=== PATIENT | female | born 1965 | race African-American/Black ===

== ENCOUNTER 2019-10-14 11:29 | Emergency (ER) | payer OTHER ==
[~2019-10-14] VITALS: Ht 149.9 cm; Wt 74.5 kg
[~2019-10-14 11:29] MED LIST: GABA-533 PO; GLIP10 PO; METF-445 PO; OMEP20 PO
[2019-10-14] MEDS ORDERED: INSULIN REGULAR, HUMAN 100 UNITS/ML SQ ONE (12:15)
[2019-10-14] MEDS ORDERED: KETOROLAC TROMETHAMINE 60 MG/2 ML VIAL IM ONE (12:15)
[2019-10-14] MEDS ORDERED: OxyCODONE HCL/ACETAMINOPHEN 5-325 MG TABLET PO ONE ×2 (12:30)
[2019-10-14 15:00] VITALS: BP 137/97
[2019-10-14 15:00] LABS: GLUCOSE,POINT OF CARE 283 MG/DL (70-110)
== END 2019-10-14 15:35 | disposition home or self-care (01) ==
LOC: EMS 11:31
DX: M25.561 Pain in right knee (principal); M25.562 Pain in left knee; G89.29 Other chronic pain; M54.9 Dorsalgia, unspecified; E11.9 Type 2 diabetes mellitus without complications; E78.00 Pure hypercholesterolemia, unspecified; I10 Essential (primary) hypertension; F17.210 Nicotine dependence, cigarettes, uncomplicated; Z90.89 Acquired absence of other organs; Z79.84 Long term (current) use of oral hypoglycemic drugs; Z88.6 Allergy status to analgesic agent; Z88.8 Allergy status to other drugs, medicaments and biological substances; W06.XXXA Fall from bed, initial encounter; Y93.89 Activity, other specified; Y92.89 Other specified places as the place of occurrence of the external cause; Y99.8 Other external cause status
CPT/HCPCS: 72100; 73521; 73562 ×2; 82962; 96372; 99284; J1815; J1885

== ENCOUNTER 2020-05-28 22:48 | Emergency (ER) | payer OTHER ==
[~2020-05-28] VITALS: Ht 157.5 cm; Wt 59.1 kg
[~2020-05-28 22:48] MED LIST changes: +GABA-1201 PO; -GABA-533 PO
[2020-05-28 23:07] VITALS: BP 141/90
== END 2020-05-28 23:25 | disposition home or self-care (01) ==
LOC: EMS 22:48
DX: S31.15 Open bite of abdominal wall without penetration into peritoneal cavity (principal); Z88.6 Allergy status to analgesic agent; Z91.018 Allergy to other foods; Z79.84 Long term (current) use of oral hypoglycemic drugs; X58.XXXD Exposure to other specified factors, subsequent encounter
CPT/HCPCS: 99283; Z7502

== ENCOUNTER 2021-01-31 12:07 | Emergency (ER) | payer OTHER ==
[~2021-01-31] VITALS: Ht 149.9 cm; Wt 77.3 kg
[2021-01-31] MEDS ORDERED: OxyCODONE HCL/ACETAMINOPHEN 5-325 MG TABLET PO ONE (12:45)
[2021-01-31 16:46] VITALS: BP 122/71
== END 2021-01-31 17:01 | disposition home or self-care (01) ==
LOC: EMS 12:07
DX: G89.29 Other chronic pain (principal); M25.561 Pain in right knee; M25.562 Pain in left knee; E11.9 Type 2 diabetes mellitus without complications; E78.00 Pure hypercholesterolemia, unspecified; I10 Essential (primary) hypertension; Z90.49 Acquired absence of other specified parts of digestive tract; Z59.0 Homelessness; Z91.018 Allergy to other foods; Z88.6 Allergy status to analgesic agent; Z79.84 Long term (current) use of oral hypoglycemic drugs; Z79.899 Other long term (current) drug therapy
CPT/HCPCS: 99283

== ENCOUNTER 2022-06-22 19:51 | Emergency (ER) | payer OTHER ==
[~2022-06-22] VITALS: Ht 149.9 cm; Wt 77.3 kg
[~2022-06-22 19:51] MED LIST changes: -GLIP10 PO; +GLIP10TA10 PO
[2022-06-23] MEDS ORDERED: ACETAMINOPHEN 500 MG TABLET PO ONE
[2022-06-23 00:06] LABS: BASOPHILS % (AUTO) 0.3 % (0.0-2.0); EOSINOPHILS % (AUTO) 0.2 % (1.0-6.0); HEMATOCRIT 31.1 % (36-46); HEMOGLOBIN 10.2 g/dL (12.0-16.0); LYMPHOCYTES # (AUTO) 1.4 K/uL (1.0-4.8); LYMPHOCYTES % (AUTO) 10.5 % (22.0-44.0); MEAN CORPUSCULAR HEMOGLOBIN 29.1 pg (26.0-34.0); MEAN CORPUSCULAR HGB CONC 32.8 G/dL (31.0-37.0); MEAN CORPUSCULAR VOLUME 89 fL (80-100); MONOCYTES # (AUTO) 0.9 K/uL (0.1-1.0); MONOCYTES % (AUTO) 6.2 % (2.0-9.0); NEUTROPHILS # (AUTO) 11.3 K/uL (1.8-7.7); NEUTROPHILS % (AUTO) 82.8 % (40.0-70.0); PLATELET COUNT (AUTO) 356 K/uL (150-450); RED BLOOD CELL COUNT(AUTO) 3.49 MIL/uL (4.00-5.20); RED CELL DISTRIBUTION WIDTH 14.5 % (11.5-14.5)
[2022-06-23 00:19] LABS: CALCIUM, TOTAL 9.7 mg/dL (8.8-10.5); CREATININE 1.5 mg/dL (0.60-1.30); POTASSIUM 4.8 mmol/L (3.5-5.1)
[2022-06-23 00:28] LABS: PROTHROMBIN TIME 10.3 SEC (9.4-11.6)
[2022-06-23 00:29] LABS: ALBUMIN 2.9 g/dL (3.4-5.0); BILIRUBIN,TOTAL 0.1 mg/dL (0.1-1.0); TOTAL PROTEIN, SERUM 7.4 g/dL (6.4-8.2)
[2022-06-23 01:24] VITALS: BP 114/84
[2022-06-23 03:08] LABS: APPEARANCE,URINE CLEAR (CLEAR); BILIRUBIN,URINE NEGATIVE (NEGATIVE); GLUCOSE, URINE (UA) 70-100 mg/dL (NEGATIVE); KETONES,URINE NEGATIVE (NEGATIVE); LEUKOCYTE ESTERASE ,URINE NEGATIVE (NEGATIVE); NITRATE,URINE NEGATIVE (NEGATIVE); OCCULT BLOOD,URINE NEGATIVE (NEGATIVE); PH,URINE 5.5 (5.0-8.0); PROTEIN,URINE 100-200,SEE CONFIRM mg/dL (NEGATIVE); SPECIFIC GRAVITIY, URINE 1.013 (1.003-1.030); UROBILINOGEN,URINE <=1.0 mg/dL (<=1.0)
[2022-06-23 03:21] LABS: SULFOSALICYLIC ACID,URINE 1+ (Negative)
[2022-06-23 03:22] LABS: BACTERIA,URINE None Seen /HPF (None Seen); RBC,URINE None Seen /HPF (0-2); SQUAMOUS EPITHELIAL CELL,UR None Seen /LPF (None Seen); WBC,URINE None Seen /HPF (0-5)
== END 2022-06-23 04:47 | disposition home or self-care (01) ==
LOC: EMS 20:00
DX: R60.0 Localized edema (principal); M19.90 Unspecified osteoarthritis, unspecified site; E11.9 Type 2 diabetes mellitus without complications; M79.605 Pain in left leg; E78.00 Pure hypercholesterolemia, unspecified; I10 Essential (primary) hypertension; G89.29 Other chronic pain; M25.569 Pain in unspecified knee; F17.210 Nicotine dependence, cigarettes, uncomplicated; Z90.49 Acquired absence of other specified parts of digestive tract; F15.90 Other stimulant use, unspecified, uncomplicated; Z59.00 Homelessness unspecified; Z99.3 Dependence on wheelchair; Z88.6 Allergy status to analgesic agent; Z88.8 Allergy status to other drugs, medicaments and biological substances
CPT/HCPCS: 71045; 80053; 81001; 81002; 82550; 82962; 83880; 84484; 85025; 85610; 85730; 93005; 93970; 99285; 36415-L1; 36415-TC

== ENCOUNTER 2024-11-13 18:38 | Inpatient (IN) | payer MEDICAID, OTHER ==
[~2024-11-13] VITALS: Ht 152.4 cm; Wt 84.5 kg
[~2024-11-13 18:38] MED LIST changes: -GLIP10TA10 PO; +GLIP10TA17 PO; +OMEP-148 PO; -OMEP20 PO
[2024-11-14] VITALS (9 sets, daily range): BP systolic 118–144; BP diastolic 63–82; PULSE 76–90; RESP 18; TEMP 97; O2SAT 96–98
[2024-11-14 01:42] LABS: COVID AG,FIA SOURCE NASAL SWAB
[2024-11-14 02:06] LABS: SARS-COV2 (COVID) ANTIGEN,FIA Negative (Negative)
[2024-11-14] MEDS: HYDROCODONE/ACETAMINOPHEN 5-325 MG TABLET PO ONE (03:25)
[2024-11-14 03:44] LABS: APPEARANCE,URINE CLEAR (CLEAR); BILIRUBIN,URINE NEGATIVE (NEGATIVE); COLOR,URINE LIGHT YELLOW (YELLOW); GLUCOSE, URINE (UA) 70-100 mg/dL (NEGATIVE); KETONES,URINE NEGATIVE (NEGATIVE); LEUKOCYTE ESTERASE ,URINE NEGATIVE (NEGATIVE); NITRATE,URINE NEGATIVE (NEGATIVE); OCCULT BLOOD,URINE SMALL (NEGATIVE); PROTEIN,URINE 300-600,SEE CONFIRM mg/dL (NEGATIVE); SPECIFIC GRAVITIY, URINE 1.012 (1.003-1.030); UROBILINOGEN,URINE <=1.0 mg/dL (<=1.0)
[2024-11-14 03:51] LABS: ALCOHOL, URINE DRUG SCREEN NEGATIVE (NEGATIVE); AMPHET/METH SCREEN,URINE POSITIVE (NEGATIVE); BARBITURATE SCREEN, URINE NEGATIVE (NEGATIVE); BENZODIAZEPINES SCREEN,URINE NEGATIVE (NEGATIVE); CANNABINOID SCREEN,URINE NEGATIVE (NEGATIVE); COCAINE SCREEN,URINE NEGATIVE (NEGATIVE); METHADONE SCREEN, URINE NEGATIVE (NEGATIVE); OPIATE SCREEN,URINE POSITIVE (NEGATIVE); PHENCYCLIDINE SCREEN,URINE NEGATIVE (NEGATIVE)
[2024-11-14 04:08] LABS: BACTERIA,URINE Few /HPF (None Seen); RBC,URINE 0-2 /HPF (0-2); SQUAMOUS EPITHELIAL CELL,UR Few /LPF (None Seen); SULFOSALICYLIC ACID,URINE 3+ (Negative); WBC,URINE 0-2 /HPF (0-5)
[2024-11-14 05:51] LABS: BASOPHILS % (AUTO) 0.5 % (0.0-2.0); HEMATOCRIT 34.9 % (36-46); HEMOGLOBIN 11.5 g/dL (12.0-16.0); LYMPHOCYTES # (AUTO) 1.8 K/uL (1.0-4.8); LYMPHOCYTES % (AUTO) 26.3 % (22.0-44.0); MEAN CORPUSCULAR HEMOGLOBIN 30.4 pg (26.0-34.0); MEAN CORPUSCULAR VOLUME 92 fL (80-100); MONOCYTES # (AUTO) 0.8 K/uL (0.1-1.0); MONOCYTES % (AUTO) 12.2 % (2.0-9.0); PLATELET COUNT (AUTO) 292 K/uL (150-450); RED BLOOD CELL COUNT(AUTO) 3.79 MIL/uL (4.00-5.20); RED CELL DISTRIBUTION WIDTH 14.6 % (11.5-14.5); WHITE BLOOD COUNT (AUTO) 6.7 K/uL (4.5-11.0)
[2024-11-14 06:06] LABS: CALCIUM, TOTAL 8.5 mg/dL (8.8-10.5); CREATININE 3.12 mg/dL (0.60-1.30); POTASSIUM 3.7 mmol/L (3.5-5.1)
[2024-11-14] MEDS: EPOETIN ALFA 10,000 UNITS/ML 2 ML VIAL SQ SCH (09:00)
[2024-11-14] MEDS: paricalcitoL 1 MCG CAPSULE PO SCH (11:43)
[2024-11-14] MEDS ORDERED: DiphenhydrAMINE HCL 50 MG/ML VIAL ONE (12:00)
[2024-11-14] MEDS ORDERED: LIDOCAINE/PF 1% 2 ML VIAL ONE (12:00)
[2024-11-14] MEDS ORDERED: HydrOXYzine PAMOATE 50 MG CAPSULE PO PRN (12:45)
[2024-11-14] MEDS ORDERED: MAGNESIUM HYDROXIDE SUSPENSION 30 ML UDCUP PO PRN (12:45)
[2024-11-14] MEDS ORDERED: PROMETHAZINE HCL 25 MG TABLET PO PRN (12:45)
[2024-11-14] MEDS ORDERED: GuaiFENesin/D-METHORPHAN [SUGAR-FREE] 200-20MG/10 ML SYRUP UDCUP PO PRN (12:45)
[2024-11-14] MEDS ORDERED: OLANZapine 5 MG RAPDIS TABLET PO PRN (12:45)
[2024-11-14] MEDS ORDERED: ZOLPIDEM TARTRATE 10 MG TABLET PO PRN (12:45)
[2024-11-14] MEDS: GABAPENTIN 100 MG CAPSULE PO SCH (13:22)
[2024-11-14] MEDS ORDERED: SODIUM CHLORIDE 0.9% 500 ML IV ONE (15:24)
[2024-11-14] MEDS: ACETAMINOPHEN 325 MG TABLET PO PRN (17:20)
[2024-11-14] MEDS ORDERED: THIAMINE 100 MG TABLET PO SCH (21:00)
[2024-11-14] MEDS ORDERED: MELATONIN 5 MG TABLET PO SCH (21:00)
[2024-11-15] MEDS ORDERED: INFLUENZA VIRUS VACCINE TVS (6MO+) 2024-25/PF 45 MCG/0.5 ML SYRINGE IM. ONE (00:15)
[2024-11-15] MEDS: GlipiZIDE 10 MG TABLET PO SCH (07:11)
[2024-11-15 08:30] VITALS: BP 125/71; PULSE 71; RESP 17; TEMP 97.5; O2SAT 100
[2024-11-15] MEDS ORDERED: FOLIC ACID 1 MG TABLET PO SCH (09:00)
[2024-11-15] MEDS: THIAMINE 100 MG TABLET PO SCH (11:07)
[2024-11-15] MEDS: OMEPRAZOLE 20 MG CAPSULE PO SCH (11:07)
[2024-11-15] MEDS: MULTIVITAMINS WITH MINERALS, THERAPEUTIC TABLET PO SCH (11:07)
[2024-11-15] MEDS: EMPAGLIFLOZIN 25 MG TABLET PO SCH (11:07)
[2024-11-15] MEDS: atenoloL 25 MG TABLET PO SCH (11:07)
[2024-11-15] MEDS: FOLIC ACID 1 MG TABLET PO SCH (11:08)
[2024-11-15 11:40] LABS: GLUCOMETER DEV NAME(LOC) 3EX.2; GLUCOSE,POINT OF CARE 318 MG/DL (70-110)
[2024-11-15] MEDS ORDERED: DEXTROSE 50%-WATER 25 GM/50 ML SYRINGE IVP PRN (13:15)
[2024-11-15] MEDS: INSULIN LISPRO 100 UNITS/ML SQ PRN (13:25)
[2024-11-15 14:25] VITALS: BP 128/60; PULSE 71; RESP 17; TEMP 97.5; O2SAT 100
[2024-11-15] MEDS: TraMADol HCL 50 MG TABLET PO PRN (14:28)
[2024-11-15 16:40] LABS: GLUCOMETER DEV NAME(LOC) 3EX.2; GLUCOSE,POINT OF CARE 135 MG/DL (70-110)
[2024-11-15] MEDS: diazePAM 2 MG TABLET PO ONE (20:09)
[2024-11-15] MEDS: MELATONIN 5 MG TABLET PO SCH (21:05)
[2024-11-15] MEDS: OLANZapine 5 MG RAPDIS TABLET PO SCH (21:09)
[2024-11-15 21:25] LABS: GLUCOMETER DEV NAME(LOC) 3EX.2; GLUCOSE,POINT OF CARE 201 MG/DL (70-110)
[2024-11-15 22:50] VITALS: BP 120/68; PULSE 63; RESP 18; TEMP 97.5
[2024-11-16] VITALS (8 sets, daily range): BP systolic 100–132; BP diastolic 54–81; PULSE 59–94; RESP 18; TEMP 97.7–98; O2SAT 98
[2024-11-16 06:45] LABS: GLUCOMETER DEV NAME(LOC) 3EX.2; GLUCOSE,POINT OF CARE 262 MG/DL (70-110)
[2024-11-16] MEDS: diazePAM 2 MG TABLET PO PRN (09:43)
[2024-11-16] MEDS: DiphenhydrAMINE HCL 50 MG/ML VIAL IVP PRN (10:39)
[2024-11-16 11:51] LABS: GLUCOMETER DEV NAME(LOC) 3EX.2; GLUCOSE,POINT OF CARE 161 MG/DL (70-110)
[2024-11-16] MEDS ORDERED: DiphenhydrAMINE HCL 50 MG/ML VIAL ONE (12:00)
[2024-11-16 17:56] LABS: GLUCOMETER DEV NAME(LOC) 3EX.2; GLUCOSE,POINT OF CARE 214 MG/DL (70-110)
[2024-11-16 20:11] LABS: GLUCOMETER DEV NAME(LOC) 3EX.2; GLUCOSE,POINT OF CARE 246 MG/DL (70-110)
[2024-11-17] VITALS (10 sets, daily range): BP systolic 111–150; BP diastolic 40–94; PULSE 60–92; RESP 16–18; TEMP 97.2–98.3; O2SAT 96–99
[2024-11-17 07:00] LABS: GLUCOMETER DEV NAME(LOC) 3EX.2; GLUCOSE,POINT OF CARE 314 MG/DL (70-110)
[2024-11-17 11:56] LABS: GLUCOMETER DEV NAME(LOC) 3EX.2; GLUCOSE,POINT OF CARE 167 MG/DL (70-110)
[2024-11-17] MEDS ORDERED: DiphenhydrAMINE HCL 50 MG/ML VIAL ONE (12:00)
[2024-11-17] MEDS ORDERED: LIDOCAINE/PF 2% 5 ML VIAL ONE (12:00)
[2024-11-17 17:30] LABS: GLUCOMETER DEV NAME(LOC) 3EX.2; GLUCOSE,POINT OF CARE 336 MG/DL (70-110)
[2024-11-17 20:30] LABS: GLUCOMETER DEV NAME(LOC) 3EX.2; GLUCOSE,POINT OF CARE 228 MG/DL (70-110)
[2024-11-17] MEDS: OLANZapine 10 MG RAPDIS TABLET PO SCH (20:53)
[2024-11-18 05:08] VITALS: RESP 18
[2024-11-18 06:15] LABS: GLUCOMETER DEV NAME(LOC) 3EX.2; GLUCOSE,POINT OF CARE 291 MG/DL (70-110)
[2024-11-18 08:37] VITALS: BP 116/60; PULSE 59; RESP 16; TEMP 97.1; O2SAT 98
[2024-11-18 09:58] VITALS: RESP 17
[2024-11-18 11:02] VITALS: RESP 16
[2024-11-18 11:50] LABS: GLUCOMETER DEV NAME(LOC) 3EX.2; GLUCOSE,POINT OF CARE 284 MG/DL (70-110)
[2024-11-18 17:36] LABS: GLUCOMETER DEV NAME(LOC) 3EX.2; GLUCOSE,POINT OF CARE 279 MG/DL (70-110)
[2024-11-18 21:05] LABS: GLUCOMETER DEV NAME(LOC) 3EX.2; GLUCOSE,POINT OF CARE 273 MG/DL (70-110)
[2024-11-18 23:51] VITALS: RESP 17
[2024-11-19 06:56] LABS: GLUCOMETER DEV NAME(LOC) 3EX.2; GLUCOSE,POINT OF CARE 244 MG/DL (70-110)
[2024-11-19 10:23] VITALS: BP 123/54; PULSE 95; RESP 18; TEMP 97.3; O2SAT 98
[2024-11-19 11:46] LABS: GLUCOMETER DEV NAME(LOC) 3EX.2; GLUCOSE,POINT OF CARE 167 MG/DL (70-110)
[2024-11-19 12:55] VITALS: RESP 17
[2024-11-19 13:56] VITALS: RESP 16
[2024-11-19 17:15] LABS: GLUCOMETER DEV NAME(LOC) 3EX.2; GLUCOSE,POINT OF CARE 317 MG/DL (70-110)
[2024-11-19 20:33] VITALS: BP 134/105; PULSE 78; RESP 19; TEMP 97.3; O2SAT 98
[2024-11-19 21:06] LABS: GLUCOMETER DEV NAME(LOC) 3EX.2; GLUCOSE,POINT OF CARE 237 MG/DL (70-110)
[2024-11-19 21:36] VITALS: RESP 18
[2024-11-20] VITALS (12 sets, daily range): BP systolic 102–144; BP diastolic 40–89; PULSE 58–84; RESP 18; TEMP 97–98.4; O2SAT 97
[2024-11-20 07:06] LABS: GLUCOMETER DEV NAME(LOC) 3EX.2; GLUCOSE,POINT OF CARE 308 MG/DL (70-110)
[2024-11-20] MEDS ORDERED: DiphenhydrAMINE HCL 50 MG/ML VIAL ONE (12:00)
[2024-11-20 15:16] LABS: GLUCOMETER DEV NAME(LOC) 3EX.2; GLUCOSE,POINT OF CARE 182 MG/DL (70-110)
[2024-11-20 16:55] LABS: GLUCOMETER DEV NAME(LOC) 3EX.2; GLUCOSE,POINT OF CARE 231 MG/DL (70-110)
[2024-11-20] MEDS: OLANZapine 10 MG RAPDIS TABLET PO SCH (20:37)
[2024-11-20] MEDS: QUEtiapine FUMARATE 200 MG TABLET PO SCH (20:37)
[2024-11-20 21:10] LABS: GLUCOMETER DEV NAME(LOC) 3EX.2; GLUCOSE,POINT OF CARE 472 MG/DL (70-110)
[2024-11-20] MEDS: INSULIN LISPRO 100 UNITS/ML SQ ONE (21:38)
[2024-11-21] VITALS (9 sets, daily range): BP systolic 113–162; BP diastolic 55–98; PULSE 61–98; RESP 17–18; TEMP 97.5–98.8; O2SAT 99
[2024-11-21 06:30] LABS: GLUCOMETER DEV NAME(LOC) 3EX.2; GLUCOSE,POINT OF CARE 240 MG/DL (70-110)
[2024-11-21] MEDS: DiphenhydrAMINE HCL 50 MG/ML VIAL IVP PRN (10:25)
[2024-11-21] MEDS ORDERED: QUEtiapine FUMARATE 100 MG TABLET PO PRN (12:30)
[2024-11-21 18:05] LABS: GLUCOMETER DEV NAME(LOC) 3EX.2; GLUCOSE,POINT OF CARE 263 MG/DL (70-110)
[2024-11-21 20:31] LABS: GLUCOMETER DEV NAME(LOC) 3EX.2; GLUCOSE,POINT OF CARE 355 MG/DL (70-110)
[2024-11-21] MEDS: QUEtiapine FUMARATE 300 MG TABLET PO SCH (20:39)
[2024-11-22 00:45] VITALS: BP 129/71; PULSE 82; RESP 18; TEMP 97.6
[2024-11-22 06:16] LABS: GLUCOMETER DEV NAME(LOC) 3EX.2; GLUCOSE,POINT OF CARE 242 MG/DL (70-110)
[2024-11-22 08:54] VITALS: BP 154/89; PULSE 77; RESP 18; TEMP 98
[2024-11-22 11:50] LABS: GLUCOMETER DEV NAME(LOC) 3EX.2; GLUCOSE,POINT OF CARE 234 MG/DL (70-110)
[2024-11-22 17:46] LABS: GLUCOMETER DEV NAME(LOC) 3EX.2; GLUCOSE,POINT OF CARE 207 MG/DL (70-110)
[2024-11-22 20:00] VITALS: BP 120/64; PULSE 71; RESP 18; TEMP 97
[2024-11-22 20:36] LABS: GLUCOMETER DEV NAME(LOC) 3EX.2; GLUCOSE,POINT OF CARE 243 MG/DL (70-110)
[2024-11-23] VITALS (11 sets, daily range): BP systolic 99–144; BP diastolic 51–67; PULSE 60–77; RESP 16–18; TEMP 97.4–98.2
[2024-11-23 06:11] LABS: GLUCOMETER DEV NAME(LOC) 3EX.2; GLUCOSE,POINT OF CARE 231 MG/DL (70-110)
[2024-11-23 11:41] LABS: GLUCOMETER DEV NAME(LOC) 3EX.2; GLUCOSE,POINT OF CARE 272 MG/DL (70-110)
[2024-11-23] MEDS: QUEtiapine FUMARATE 25 MG TABLET PO SCH (13:26)
[2024-11-23] MEDS: LORazepam 1 MG TABLET PO PRN (19:57)
[2024-11-23 20:55] LABS: GLUCOMETER DEV NAME(LOC) 3EX.2; GLUCOSE,POINT OF CARE 252 MG/DL (70-110)
[2024-11-24 06:21] LABS: GLUCOMETER DEV NAME(LOC) 3EX.2; GLUCOSE,POINT OF CARE 300 MG/DL (70-110)
[2024-11-24 08:33] VITALS: BP 97/72; PULSE 60; RESP 18; TEMP 97
[2024-11-24 09:33] VITALS: BP 97/72; PULSE 60; RESP 18; TEMP 97
[2024-11-24 12:06] LABS: GLUCOMETER DEV NAME(LOC) 3EX.2; GLUCOSE,POINT OF CARE 320 MG/DL (70-110)
[2024-11-24 12:40] VITALS: BP 97/72; PULSE 60; RESP 17; TEMP 97
[2024-11-24] MEDS ORDERED: DiphenhydrAMINE HCL 50 MG/ML VIAL IM ONE (16:30)
[2024-11-24 17:26] LABS: GLUCOMETER DEV NAME(LOC) 3EX.2; GLUCOSE,POINT OF CARE 315 MG/DL (70-110)
[2024-11-24] MEDS: QUEtiapine FUMARATE 200 MG TABLET PO SCH (21:21)
[2024-11-24 21:25] LABS: GLUCOMETER DEV NAME(LOC) 3EX.2; GLUCOSE,POINT OF CARE 349 MG/DL (70-110)
[2024-11-24 22:32] VITALS: BP 125/72; PULSE 71; RESP 18; TEMP 98.1
[2024-11-25] VITALS (10 sets, daily range): BP systolic 108–132; BP diastolic 43–83; PULSE 60–78; RESP 18; TEMP 98–98.2; O2SAT 97
[2024-11-25 06:15] LABS: GLUCOMETER DEV NAME(LOC) 3EX.2; GLUCOSE,POINT OF CARE 345 MG/DL (70-110)
[2024-11-25 12:34] LABS: POTASSIUM 3.8 mmol/L (3.5-5.1)
[2024-11-25 12:35] LABS: CREATININE 1.79 mg/dL (0.60-1.30)
[2024-11-25 17:56] LABS: GLUCOMETER DEV NAME(LOC) 3EX.2; GLUCOSE,POINT OF CARE 350 MG/DL (70-110)
[2024-11-25 21:25] LABS: GLUCOMETER DEV NAME(LOC) 3EX.2; GLUCOSE,POINT OF CARE 361 MG/DL (70-110)
[2024-11-26 02:19] VITALS: BP 117/78; PULSE 81; RESP 18; TEMP 98.2; O2SAT 99
[2024-11-26 06:26] LABS: GLUCOMETER DEV NAME(LOC) 3EX.2; GLUCOSE,POINT OF CARE 235 MG/DL (70-110)
[2024-11-26 08:36] VITALS: BP 119/76; PULSE 83; RESP 17; TEMP 98.3; O2SAT 98
[2024-11-26 09:36] VITALS: BP 122/81; PULSE 82; RESP 18; TEMP 98; O2SAT 99
[2024-11-26 11:36] LABS: GLUCOMETER DEV NAME(LOC) 3EX.2; GLUCOSE,POINT OF CARE 248 MG/DL (70-110)
[2024-11-26 16:01] VITALS: BP 98/51; PULSE 56; RESP 18; TEMP 97.7; O2SAT 98
[2024-11-26 17:50] LABS: GLUCOMETER DEV NAME(LOC) 3EX.2; GLUCOSE,POINT OF CARE 166 MG/DL (70-110)
[2024-11-26] MEDS ORDERED: DiphenhydrAMINE HCL 50 MG/ML VIAL IM ONE (17:57)
[2024-11-26] MEDS ORDERED: LIDOCAINE/PF 1% 2 ML VIAL IV ONE (17:57)
[2024-11-26] MEDS: MAG HYDROX/ALUMINUM HYD/SIMETH ES 30 ML SUSPENSION UDCUP PO PRN (18:23)
[2024-11-26 20:20] LABS: GLUCOMETER DEV NAME(LOC) 3EX.2; GLUCOSE,POINT OF CARE 225 MG/DL (70-110)
[2024-11-26 22:26] VITALS: RESP 18
[2024-11-27 05:09] VITALS: BP 115/63; PULSE 88; RESP 18; TEMP 97.9
[2024-11-27 05:30] LABS: GLUCOMETER DEV NAME(LOC) 3EX.2; GLUCOSE,POINT OF CARE 241 MG/DL (70-110)
[2024-11-27 05:33] VITALS: BP 115/63; PULSE 88; RESP 18; TEMP 97.9
[2024-11-27 08:16] VITALS: BP 125/72; PULSE 77; RESP 18; TEMP 98
[2024-11-27 09:16] VITALS: BP 118/76; PULSE 79; RESP 17; TEMP 98
[2024-11-27 12:10] LABS: GLUCOMETER DEV NAME(LOC) 3EX.2; GLUCOSE,POINT OF CARE 246 MG/DL (70-110)
[2024-11-27] MEDS: LOPERAMIDE HCL 2 MG CAPSULE PO PRN (12:50)
[2024-11-27] MEDS: QUEtiapine FUMARATE 25 MG TABLET PO SCH (13:22)
[2024-11-27 17:56] LABS: GLUCOMETER DEV NAME(LOC) 3EX.2; GLUCOSE,POINT OF CARE 139 MG/DL (70-110)
[2024-11-27 20:21] VITALS: BP 120/69; PULSE 79; RESP 18; TEMP 97.5
[2024-11-27 20:30] LABS: GLUCOMETER DEV NAME(LOC) 3E.I 2; GLUCOSE,POINT OF CARE 142 MG/DL (70-110)
[2024-11-28] VITALS (15 sets, daily range): BP systolic 102–141; BP diastolic 42–74; PULSE 80–99; RESP 17–18; TEMP 97.3–97.5
[2024-11-28 05:46] LABS: GLUCOMETER DEV NAME(LOC) 3E.I 2; GLUCOSE,POINT OF CARE 194 MG/DL (70-110)
[2024-11-28 11:51] LABS: GLUCOMETER DEV NAME(LOC) 3E.I 2; GLUCOSE,POINT OF CARE 143 MG/DL (70-110)
[2024-11-28] MEDS ORDERED: DiphenhydrAMINE HCL 50 MG/ML VIAL ONE (12:00)
[2024-11-28] MEDS ORDERED: LIDOCAINE/PF 1% 2 ML VIAL ONE (12:00)
[2024-11-28] MEDS: DiphenhydrAMINE HCL 50 MG/ML VIAL IVP PRN (14:59)
[2024-11-28] MEDS: LIDOCAINE/PF 1% 2 ML VIAL ID ONE (15:59)
[2024-11-28 20:45] LABS: GLUCOMETER DEV NAME(LOC) 3E.I 2; GLUCOSE,POINT OF CARE 176 MG/DL (70-110)
[2024-11-29 06:21] LABS: GLUCOMETER DEV NAME(LOC) 3E.I 2; GLUCOSE,POINT OF CARE 175 MG/DL (70-110)
[2024-11-29 08:52] VITALS: BP 122/94; RESP 18; TEMP 98.6
[2024-11-29 12:36] LABS: CALCIUM, TOTAL 8.2 mg/dL (8.8-10.5); CREATININE 2.98 mg/dL (0.60-1.30); POTASSIUM 4.6 mmol/L (3.5-5.1)
[2024-11-29 12:55] LABS: GLUCOMETER DEV NAME(LOC) 3E.I 2; GLUCOSE,POINT OF CARE 173 MG/DL (70-110)
[2024-11-29 18:50] LABS: GLUCOMETER DEV NAME(LOC) 3E.I 2; GLUCOSE,POINT OF CARE 152 MG/DL (70-110)
[2024-11-29 20:32] VITALS: RESP 18
[2024-11-30] VITALS (16 sets, daily range): BP systolic 106–131; BP diastolic 57–83; PULSE 61–101; RESP 17–18; TEMP 97.2–98.1; O2SAT 0–100
[2024-11-30 05:40] LABS: GLUCOMETER DEV NAME(LOC) 3E.I 2; GLUCOSE,POINT OF CARE 89 MG/DL (70-110)
[2024-11-30] MEDS: LIDOCAINE/PF 1% 2 ML VIAL ID ONE (08:00)
[2024-11-30 11:20] LABS: GLUCOMETER DEV NAME(LOC) 3E.I 2; GLUCOSE,POINT OF CARE 114 MG/DL (70-110)
[2024-11-30] MEDS ORDERED: DiphenhydrAMINE HCL 50 MG/ML VIAL ONE (12:00)
[2024-11-30] MEDS ORDERED: LIDOCAINE/PF 2% 5 ML VIAL ONE (12:00)
[2024-11-30] MEDS ORDERED: DiphenhydrAMINE HCL 50 MG/ML VIAL IVP PRN (13:00)
[2024-11-30] MEDS: LIDOCAINE/PF 1% 2 ML VIAL ID PRN (14:02)
[2024-11-30] MEDS: DiphenhydrAMINE HCL 50 MG/ML VIAL IVP PRN (14:04)
[2024-11-30 17:46] LABS: GLUCOMETER DEV NAME(LOC) 3E.I 2; GLUCOSE,POINT OF CARE 162 MG/DL (70-110)
[2024-11-30 20:31] LABS: GLUCOMETER DEV NAME(LOC) 3E.I 2; GLUCOSE,POINT OF CARE 232 MG/DL (70-110)
[2024-12-01 05:30] VITALS: BP 118/70; PULSE 90; RESP 18; TEMP 97.9; O2SAT 100
[2024-12-01 06:31] LABS: GLUCOMETER DEV NAME(LOC) 3E.I 2; GLUCOSE,POINT OF CARE 138 MG/DL (70-110)
[2024-12-01 08:00] VITALS: BP 102/65; PULSE 88; RESP 16; TEMP 97.1; O2SAT 95
[2024-12-01 12:11] LABS: GLUCOMETER DEV NAME(LOC) 3E.I 2; GLUCOSE,POINT OF CARE 194 MG/DL (70-110)
[2024-12-01 17:15] LABS: GLUCOMETER DEV NAME(LOC) 3E.I 2; GLUCOSE,POINT OF CARE 219 MG/DL (70-110)
[2024-12-01 20:19] VITALS: BP 132/68; PULSE 85; RESP 18; TEMP 97.6
[2024-12-01 20:21] LABS: GLUCOMETER DEV NAME(LOC) 3E.I 2; GLUCOSE,POINT OF CARE 99 MG/DL (70-110)
[2024-12-01 22:55] VITALS: O2SAT 100
[2024-12-02] VITALS (9 sets, daily range): BP systolic 126–144; BP diastolic 60–75; PULSE 79–89; RESP 16–18; TEMP 97–97.6; O2SAT 96–98
[2024-12-02 05:41] LABS: GLUCOMETER DEV NAME(LOC) 3E.I 2; GLUCOSE,POINT OF CARE 164 MG/DL (70-110)
[2024-12-02] MEDS ORDERED: DiphenhydrAMINE HCL 50 MG/ML VIAL ONE (12:00)
[2024-12-02] MEDS ORDERED: LIDOCAINE/PF 1% 2 ML VIAL ONE (12:00)
[2024-12-02] MEDS: LIDOCAINE/PF 1% 2 ML VIAL ID PRN (13:30)
[2024-12-02 18:36] LABS: GLUCOMETER DEV NAME(LOC) 3E.I 2; GLUCOSE,POINT OF CARE 211 MG/DL (70-110)
[2024-12-02 20:15] LABS: GLUCOMETER DEV NAME(LOC) 3E.I 2; GLUCOSE,POINT OF CARE 157 MG/DL (70-110)
[2024-12-03 02:18] VITALS: BP 106/60; PULSE 81; RESP 18; TEMP 97.6; O2SAT 97
[2024-12-03 06:00] LABS: GLUCOMETER DEV NAME(LOC) 3E.I 2; GLUCOSE,POINT OF CARE 163 MG/DL (70-110)
[2024-12-03 08:50] VITALS: RESP 18; TEMP 98.1; O2SAT 97
[2024-12-03 11:26] VITALS: BP 141/86; PULSE 77; RESP 18
[2024-12-03 12:15] LABS: GLUCOMETER DEV NAME(LOC) 3E.I 2; GLUCOSE,POINT OF CARE 211 MG/DL (70-110)
[2024-12-03 17:56] LABS: GLUCOMETER DEV NAME(LOC) 3E.I 2; GLUCOSE,POINT OF CARE 205 MG/DL (70-110)
[2024-12-03 20:45] VITALS: BP 136/61; PULSE 77; RESP 18; TEMP 98.1; O2SAT 98
[2024-12-03 21:06] LABS: GLUCOMETER DEV NAME(LOC) 3E.I 2; GLUCOSE,POINT OF CARE 156 MG/DL (70-110)
[2024-12-04 01:45] VITALS: BP 141/60; PULSE 76; RESP 18; TEMP 97.7; O2SAT 95
[2024-12-04 06:06] LABS: GLUCOMETER DEV NAME(LOC) 3E.I 2; GLUCOSE,POINT OF CARE 261 MG/DL (70-110)
[2024-12-04 09:55] VITALS: BP 108/55; PULSE 74; RESP 18; TEMP 97.7; O2SAT 100
[2024-12-04 11:55] LABS: GLUCOMETER DEV NAME(LOC) 3E.I 2; GLUCOSE,POINT OF CARE 204 MG/DL (70-110)
[2024-12-04 16:24] VITALS: BP 128/71; PULSE 78; RESP 17; TEMP 98
[2024-12-04 17:24] VITALS: BP 131/76; PULSE 76; RESP 18; TEMP 97.8
[2024-12-04 17:36] LABS: GLUCOMETER DEV NAME(LOC) 3E.I 2; GLUCOSE,POINT OF CARE 201 MG/DL (70-110)
[2024-12-04 20:40] LABS: GLUCOMETER DEV NAME(LOC) 3E.I 2; GLUCOSE,POINT OF CARE 203 MG/DL (70-110)
[2024-12-04 22:26] VITALS: BP 140/80; PULSE 70; RESP 18; TEMP 98.1
[2024-12-05] VITALS (13 sets, daily range): BP systolic 100–148; BP diastolic 68–82; PULSE 72–97; RESP 18–20; TEMP 96.9–97.6; O2SAT 96–98
[2024-12-05 06:06] LABS: GLUCOMETER DEV NAME(LOC) 3E.I 2; GLUCOSE,POINT OF CARE 185 MG/DL (70-110)
[2024-12-05] MEDS: LORazepam 1 MG TABLET PO PRN (06:20)
[2024-12-05] MEDS: LIDOCAINE/PF 1% 2 ML VIAL ID PRN (10:38)
[2024-12-05] MEDS: DiphenhydrAMINE HCL 50 MG/ML VIAL IVP PRN (10:38)
[2024-12-05 12:15] LABS: GLUCOMETER DEV NAME(LOC) 3E.I 2; GLUCOSE,POINT OF CARE 243 MG/DL (70-110)
[2024-12-05] MEDS ORDERED: LIDOCAINE/PF 1% 2 ML VIAL IM ONE (16:45)
[2024-12-05] MEDS ORDERED: DiphenhydrAMINE HCL 50 MG/ML VIAL IM ONE (16:45)
[2024-12-05 17:10] LABS: GLUCOMETER DEV NAME(LOC) 3E.I 2; GLUCOSE,POINT OF CARE 161 MG/DL (70-110)
[2024-12-05 20:30] LABS: GLUCOMETER DEV NAME(LOC) 3E.I 2; GLUCOSE,POINT OF CARE 147 MG/DL (70-110)
[2024-12-06 05:12] VITALS: BP 112/65; PULSE 75; RESP 18; TEMP 97.1; O2SAT 100
[2024-12-06 06:05] LABS: GLUCOMETER DEV NAME(LOC) 3E.I 2; GLUCOSE,POINT OF CARE 138 MG/DL (70-110)
[2024-12-06 08:40] VITALS: BP 115/63; PULSE 73; RESP 18; TEMP 97.6; O2SAT 99
[2024-12-06] MEDS ORDERED: MELA5TAB40 PO (11:34)
[2024-12-06] MEDS ORDERED: QUET200T30 PO (11:34)
[2024-12-06] MEDS ORDERED: GABA-1216 PO (11:34)
[2024-12-06] MEDS ORDERED: QUET25TA36 PO (11:34)
[2024-12-06 11:41] LABS: GLUCOMETER DEV NAME(LOC) 3E.I 2; GLUCOSE,POINT OF CARE 169 MG/DL (70-110)
[2024-12-06] MEDS ORDERED: MULT-1303 PO (12:59)
[2024-12-06] MEDS ORDERED: [UNRECOGNIZED DRUG - CODE] SQ (13:00)
[2024-12-06 16:50] LABS: GLUCOMETER DEV NAME(LOC) 3E.I 2; GLUCOSE,POINT OF CARE 137 MG/DL (70-110)
== END 2024-12-06 17:35 | disposition home or self-care (01) | DRG 750 ==
LOC: EMS 18:38 → 3EI 11-14 22:16
PROVIDERS: ADMIT Psychiatry & Neurology Psychiatry; ATTEND Psychiatry & Neurology Psychiatry
PROC: 5A1D70Z Performance of Urinary Filtration, Intermittent, Less than 6 Hours Per Day (ICD-10-PCS; principal; 2024-11-14)
PROC: GZHZZZZ Group Psychotherapy (ICD-10-PCS; 2024-11-15)
PROC: GZ56ZZZ Individual Psychotherapy, Supportive (ICD-10-PCS; 2024-11-15)
PROC: GZ58ZZZ Individual Psychotherapy, Cognitive-Behavioral (ICD-10-PCS; 2024-11-15)
PROC: 5A1D70Z Performance of Urinary Filtration, Intermittent, Less than 6 Hours Per Day (ICD-10-PCS; 2024-11-16)
PROC: 5A1D70Z Performance of Urinary Filtration, Intermittent, Less than 6 Hours Per Day (ICD-10-PCS; 2024-11-17)
PROC: 5A1D70Z Performance of Urinary Filtration, Intermittent, Less than 6 Hours Per Day (ICD-10-PCS; 2024-11-20)
PROC: 5A1D70Z Performance of Urinary Filtration, Intermittent, Less than 6 Hours Per Day (ICD-10-PCS; 2024-11-21)
PROC: 5A1D70Z Performance of Urinary Filtration, Intermittent, Less than 6 Hours Per Day (ICD-10-PCS; 2024-11-23)
PROC: 5A1D70Z Performance of Urinary Filtration, Intermittent, Less than 6 Hours Per Day (ICD-10-PCS; 2024-11-25)
PROC: 5A1D70Z Performance of Urinary Filtration, Intermittent, Less than 6 Hours Per Day (ICD-10-PCS; 2024-11-28)
PROC: 5A1D70Z Performance of Urinary Filtration, Intermittent, Less than 6 Hours Per Day (ICD-10-PCS; 2024-11-30)
PROC: 5A1D70Z Performance of Urinary Filtration, Intermittent, Less than 6 Hours Per Day (ICD-10-PCS; 2024-12-02)
PROC: 5A1D70Z Performance of Urinary Filtration, Intermittent, Less than 6 Hours Per Day (ICD-10-PCS; 2024-12-05)
DX: F20.9 Schizophrenia, unspecified (principal); E46 Unspecified protein-calorie malnutrition; I13.2 Hypertensive heart and chronic kidney disease with heart failure and with stage 5 chronic kidney disease, or end stage renal disease; N18.6 End stage renal disease; E11.22 Type 2 diabetes mellitus with diabetic chronic kidney disease; E83.51 Hypocalcemia; E83.39 Other disorders of phosphorus metabolism; E88.09 Other disorders of plasma-protein metabolism, not elsewhere classified; Z20.822 Contact with and (suspected) exposure to COVID-19; K86.1 Other chronic pancreatitis; F17.210 Nicotine dependence, cigarettes, uncomplicated; I50.9 Heart failure, unspecified; R62.7 Adult failure to thrive; G89.29 Other chronic pain; E78.00 Pure hypercholesterolemia, unspecified; G47.00 Insomnia, unspecified; E11.40 Type 2 diabetes mellitus with diabetic neuropathy, unspecified; N25.81 Secondary hyperparathyroidism of renal origin; E66.9 Obesity, unspecified; K21.9 Gastro-esophageal reflux disease without esophagitis; J44.89 Other specified chronic obstructive pulmonary disease; Z63.9 Problem related to primary support group, unspecified; Z79.899 Other long term (current) drug therapy; Z68.36 Body mass index [BMI] 36.0-36.9, adult; Z59.00 Homelessness unspecified; Z65.3 Problems related to other legal circumstances; Z55.9 Problems related to education and literacy, unspecified; Z88.8 Allergy status to other drugs, medicaments and biological substances; Z79.4 Long term (current) use of insulin; Z82.49 Family history of ischemic heart disease and other diseases of the circulatory system; Z83.3 Family history of diabetes mellitus; Z88.6 Allergy status to analgesic agent; Z90.710 Acquired absence of both cervix and uterus; Z99.2 Dependence on renal dialysis; Z91.199 Patient's noncompliance with other medical treatment and regimen due to unspecified reason
CPT/HCPCS: 80048; 80307; 81001; 81002; 82565; 82962; 83880; 84100; 84132; 84295; 84520; 85025; 87081; 87340; 90686; 90935; 93005; 96372; 97162; 97530; 99285; G0480; J0885; J1200; J1815; J3490; J7040